=== PATIENT | male | born 1965 | race Caucasian/White ===

== ENCOUNTER 2018-12-04 11:29 | Inpatient (IN) ==
--- NOTE | 2018-12-04 11:43 | Emergency Department Note ---
Disposition Clinical Impression: Abnormal stress electrocardiogram test using treadmill Chest pain Qualifiers: Chest pain type: unspecified Qualified Code(s): R07.9 - Chest pain, unspecified Disposition: Admitted As Inpatient Condition: Fair Forms: ED Satisfaction Letter Time of Disposition: 13:07 General Adult HPI - General Chief complaint: ED Chest Pain Stated complaint: cp Time Seen by Provider: 12/04/18 11:35 Source: EMS Limitations: no limitations Nursing Notes Reviewed: Yes Vital Signs Reviewed: Yes - History of Present Illness HPI Narrative: Patient presents to the emergency department after a positive stress test at the [facility]. Patient states she has been having some dizzy spells intermittently. None today. He went to the OR to have a stress test performed. After february have to patient developed some anterolateral ST depressions and T- wave inversions. Following the test he had some substernal chest pressure that is since resolved. Patient states he feels completely fine at this time. No cardiac history. No history of hypertension diabetes or high cholesterol. He is a nonsmoker. He states his mother did have heart problems. Pain Scale: 0 - Related Data Allergies Allergy/AdvReac Type Severity Reaction Status Date / Time No Known Allergies Allergy Verified 12/04/18 11:41 All systems ED: reviewed and negative except as stated. Constitutional: Denies: fever Cardiovascular: Reports: chest pain. Denies: palpitations, dyspnea on exertion, syncope Respiratory: Denies: cough Gastrointestinal: Denies: nausea Neurological: Reports: vertigo. Denies: headache Past Medical History - Past Medical History Attestation: Yes The following information was validated with the patient. Source: patient Medical history: Reports: no medical history Psychiatric history: Reports: no psych history - Social History Smoking Status: Never smoker Smokeless Tobacco Status: No Alcohol use: Reports: none Drug use: Reports: none Physical Exam - General Limitations: no limitations General appearance: alert, in no apparent distress - Head Head exam: atraumatic, normocephalic - Eye Eye exam: Present: normal appearance, PERRL - ENT ENT exam: normal exam - Neck Neck exam: Present: normal inspection - Chest Chest inspection: Present: normal inspection - Respiratory Respiratory exam: Present: normal lung sounds bilaterally - Cardiovascular Cardiovascular exam: Present: regular rate, normal rhythm, normal heart sounds - Abdominal Exam Abdominal exam: Present: soft, Non-Tender - Neurological Exam Neurological exam: Present: alert, oriented X3 - Psychiatric Psychiatric exam: Present: normal affect - Skin Skin exam: Present: warm, dry Course - Reevaluation(s) Reevaluation #1: Consult called the cardiology. Dr Marrero states the medical admission and they will see him in consultation. No heparin at this time. We agree with the patient is asymptomatic and not in need of an emergent heart catheterization at this moment. Time: 11:48 Reevaluation #2: Workup is unremarkable and I am calling for admission at this time. Time: 12:54 - Consultations Consultation #1: Dr Cox accepts for admission. Time: 13:07 Vital Signs Temperature 97.6 F 12/04/18 11:34 Pulse Rate 59 12/04/18 11:34 Respiratory Rate 16 12/04/18 11:34 Blood Pressure 143/93 12/04/18 11:34 O2 Sat by Pulse Oximetry 98 12/04/18 11:34 Temperature 97.6 F 12/04/18 11:34 Pulse Rate 59 12/04/18 11:34 Respiratory Rate 16 12/04/18 11:34 Blood Pressure 143/93 12/04/18 11:34 O2 Sat by Pulse Oximetry 98 12/04/18 11:34 Oxygen Delivery Oxygen Delivery Room Air Medical Decision Making - Medical Records Medical records reviewed: Yes I reviewed the patient's medical records. - Lab Data Lab results reviewed: Yes I reviewed the patient's lab results. Result diagrams: 12/04/18 12:04 12/04/18 12:04 Lab Results 12/04/18 12/04/18 Range/Units 12:04 12:04 WBC 5.8 (4.3-11.1) K/mcL RBC 4.78 (4.19-5.50) M/mcL Hgb 15.1 (12.9-16.9) g/dL Hct 43.4 (37.5-50.1) % MCV 90.8 (83.0-100.0) fL MCH 31.6 (28.0-33.3) pg MCHC 34.8 (31.6-35.5) g/dL RDW 12.3 (11.5-14.5) % Plt Count 260 (140-400) K/mcL MPV 9.5 (9.4-12.4) fL Immature Gran % 0.3 (0-4) % Seg Neutrophils % 57.0 % Lymphocytes % 31.2 % Monocytes % 8.9 % Eosinophils % 2.1 % Basophils % 0.5 % Neutrophils # 3.3 (1.6-8.9) K/mcL Lymphocytes # 1.8 (0.6-4.6) K/mcL Monocytes # 0.5 (0.0-1.3) K/mcL Eosinophils # 0.1 (0.0-0.6) K/mcL Basophils # 0.0 (0.0-0.2) K/mcL Sodium 141 (136-145) mEq/L Potassium 4.4 (3.5-5.1) mEq/L Chloride 108 H (98-107) mEq/L Carbon Dioxide 26 (23-29) mEq/L BUN 14 (6-20) mg/dL Creatinine 0.94 (0.70-1.30) mg/dL Est GFR ( Amer) > 60 (> 60) Est GFR (Non-Af Amer) > 60 (> 60) BUN/Creatinine Ratio 15 (6-26) Glucose 88 (70-105) mg/dL Calculated Osmolality 292 (280-300) Calcium 9.1 (8.6-10.3) mg/dL Troponin I < 0.03 (< 0.04) ng/mL - Radiology Data Radiology results reviewed: Yes I reviewed the patient's radiology results. Chest X-Ray 12/04/18 11:36 IMPRESSION: No radiographic evidence of acute cardiopulmonary disease. D/ / eKegan Silverio / Keegan Silverio Interpreting Provider: Keegan Silveroi - EKG Data EKG #1 EKG attestation: Yes I reviewed and interpreted this EKG. EKG results narrative: Normal sinus at 56. Normal ST segments. Normal T waves. Normal QRS. QT 418 with QTC 408
[2018-12-04 12:20] LABS: Basophils % 0.5 %; Eosinophils # 0.1 K/mcL (0.0-0.6); Eosinophils % 2.1 %; Hematocrit 43.4 % (37.5-50.1); Hemoglobin 15.1 g/dL (12.9-16.9); Immature Granulocytes % 0.3 % (0-4); Lymphocytes # 1.8 K/mcL (0.6-4.6); Lymphocytes % 31.2 %; Mean Corpuscular HGB Conc 34.8 g/dL (31.6-35.5); Mean Corpuscular Hemoglobin 31.6 pg (28.0-33.3); Mean Corpuscular Volume 90.8 fL (83.0-100.0); Mean Platelet Volume 9.5 fL (9.4-12.4); Monocytes # 0.5 K/mcL (0.0-1.3); Monocytes % 8.9 %; Neutrophils # 3.3 K/mcL (1.6-8.9); Platelet Count 260 K/mcL (140-400); Red Blood Count 4.78 M/mcL (4.19-5.50); Red Cell Distribution Width 12.3 % (11.5-14.5)
[2018-12-04 12:40] LABS: BUN/Creatinine Ratio 15 (6-26); Blood Urea Nitrogen 14 mg/dL (6-20); Calcium 9.1 mg/dL (8.6-10.3); Carbon Dioxide 26 mEq/L (23-29); Chloride 108 mEq/L (98-107); Glucose 88 mg/dL (70-105); Osmolality,Calculated 292 (280-300); Potassium 4.4 mEq/L (3.5-5.1); Sodium 141 mEq/L (136-145); eGFR For Non-African Americans > 60 (> 60)
[2018-12-04 12:41] LABS: Troponin I < 0.03 ng/mL (< 0.04)
[2018-12-04] MEDS ORDERED: Naloxone 0.4 MG/ML INJ IVP PRN (13:48)
[2018-12-04] MEDS ORDERED: Ondansetron 4 MG/2 ML VIAL IVP PRN (13:52)
[2018-12-04] MEDS ORDERED: Nitroglycerin 0.4 MG TAB.SUBL SL PRN (13:52)
--- NOTE | 2018-12-04 14:02 | Internal Med History&Physical ---
Date of Encounter: 12/04/18 Time of Encounter: 13:30 Internal Medicine - H&P: HPI Chief complaint: Abnormal stress test Admitted From: Emergency Dept Plans for Post Hospital Care: Home History of present illness: Mr. Anderson is a 53 year old male with hx of Barretts esophagus transferred to ED from [place] due to abnormal stress test. Mr Anderson reported that he has been having episodes of lightheadedness recently. No other symptoms. No CP or SOB. No prior cardiac disease. He saw his PCP and stress test was arranged. Today he underwent nuclear stress test. At the end of test he developed some substernal chest discomfort with dyspnea. No nausea or diaphoresis. He sat down and "my blood pressure dropped." He was given IV fluids with improvement and the chest discomfort resolved. It has not returned. Currently he is asymptomatic. At [place] he was taken to the urgent care. Monitor showed sinus bradycardia. Creatinine 0.93 and troponin negative. He was evaluated in ED and admitted for further cardiac workup. Past Med Surg Social Fam HX - Past Medical History Source: patient, old records reviewed Medical history: GERD, hyperlipidemia Additional medical history: Barretts esophagus, urethral stricture, Psychiatric history: no psych history - Past Surgical History Additional surgical history: Left Knee Scope, Left Knee ACL, Left Total Knee Replacement, Urethral Stricture Removal, Aron Fundoplication - Social History Smoking Status: Former smoker Smokeless Tobacco Status: No Alcohol use: none Drug use: none Occupational status: employed Current living situation: With Family Activity Level: Independent ambulation - Family History Mother Hx Family Cardiac Disorders: Yes Hx Family Endocrine Disorder: Yes Father Hx Family Cancer: Yes Internal Medicine - H&P: Meds Sulfamethoxazole/Trimeth DS [Bactrim DS] 0.5 each PO DAILY 12/04/18 [History] Allergy/AdvReac Type Severity Reaction Status Date / Time No Known Allergies Allergy Verified 12/04/18 11:41 All Systems PM: A 10-system review of systems was performed and is negative for pertinent findings except as documented above in the HPI. - Constitutional Constitutional: no fatigue, no falls - EENT Eyes: no dry eye, no loss of vision Ears: no decreased hearing Nose, mouth and throat: no dry mouth, no sinus pain - Cardiovascular Cardiovascular ROS IM: chest pain, dyspnea, lightheadedness, no orthopnea, no palpitations, no paroxysmal nocturnal dyspnea - Respiratory Respiratory: no dyspnea, no dyspnea on exertion, no chest congestion - Gastrointestinal Gastrointestinal: no cramping, no nausea - Genitourinary Genitourinary ROS male: difficulty urinating, urinary hesitancy - Musculoskeletal Musculoskeletal ROS IM: no arthralgias, no muscle cramps - Integumentary Integumentary IM: no erythema, no rash - Neurological Neurological ROS: no confusion, no convulsions, no paresthesias - Endocrine Endocrine IM: no cold intolerance, no excessive sweating - Hematologic/Lymphatic Hematologic/Lymphatic: no easy bleeding - Allergic/Immunologic Allergic/Immunologic: no throat swelling - Constitutional Vitals: Temp Pulse Resp BP Pulse Ox 97.6 F 59 16 113/76 98 12/04/18 11:34 12/04/18 11:34 12/04/18 13:22 12/04/18 13:22 12/04/18 11:34 General appearance: Present: A&O X 3, pleasant, answers questions appropriately Exam: See below - Head Head exam: Present: atraumatic, normocephalic - Eye Eye exam: Present: EOMI, conjuntiva pink - ENT ENT exam: Present: mucous membranes moist - Neck Neck exam general surgery: Present: normal inspection. Absent: thyromegaly - Respiratory Respiratory exam: Present: CTAB. Absent: rales, rhonchi, wheezes - Cardiovascular Cardiovascular exam: Present: RRR. Absent: tachycardia - GI/Abdominal GI/Abdominal exam: Present: normal bowel sounds, soft. Absent: mass, tenderness - Extremities Exam Extremities exam: Present: warm. Absent: pedal edema, tenderness - Neurological Exam Neurological exam: Present: alert, oriented X3, no focal deficits - Psychiatric Psychiatric exam: Present: normal affect, normal mood - Skin Skin exam: Present: dry, warm. Absent: rash Internal Med - H&P Results - Labs CBC & Chem 7: 12/04/18 12:04 12/04/18 12:04 Labs: Short CBC 12/04/18 Range/Units 12:04 WBC 5.8 (4.3-11.1) K/mcL Hgb 15.1 (12.9-16.9) g/dL Hct 43.4 (37.5-50.1) % Plt Count 260 (140-400) K/mcL Neutrophils # 3.3 (1.6-8.9) K/mcL BMP 12/04/18 12:04 Sodium 141 Potassium 4.4 Chloride 108 H Carbon Dioxide 26 BUN 14 Creatinine 0.94 Glucose 88 Calcium 9.1 Cardiac Enzymes 12/04/18 Range/Units 12:04 Troponin I < 0.03 (< 0.04) ng/mL - EKG Data Prior EKG available for review: yes When compared to previous EKG: there is no significant change Interpretation IM: normal EKG - Impressions ITS Impressions Chest X-Ray 12/04/18 11:36 IMPRESSION: No radiographic evidence of acute cardiopulmonary disease. D/ / Keegan Silverio / Keegan Silverio Interpreting Provider: Keegan Silverio - Assessment and plan (1) Chest pain Current Visit: Yes Status: Acute Assessment and plan: Pt transferred from [place] due to abnormal stress test. Review of stress test shows significant EKG changes. Pt had chest discomfort and presumed hypotension (per his report of BP dropping and need for fluids) in stress test. Currently asymptomatic Admit to med tele. NPO at this time. Anticipate [facility] today. Has been given ASA. Continue dialy ASA. Statin started. Qualifiers: Chest pain type: chest pain due to myocardial ischemia Ischemic chest pain type: unstable angina pectoris Qualified Code(s): I20.0 - Unstable angina (2) Urethral stricture Current Visit: Yes Status: Chronic Assessment and plan: Pt with hx of urethral stricture. Takes half of Bactrim DS daily and straight caths one to two times weekly. Qualifiers: Urethral stricture type: other stricture Urethral stricture sex-location: male urethra-unspecified Qualified Code(s): N35.819 - Other urethral stricture, male, unspecified site (3) Barretts esophagus Current Visit: Yes Status: Chronic Assessment and plan: Previous Barretts. Hx Aron. Qualifiers: Jacob's esophagus type: with dysplasia of unspecified degree Qualified Code(s): K22.719 - Jacob's esophagus with dysplasia, unspecified; K22.71 - Jacob's esophagus with dysplasia (4) HLD (hyperlipidemia) Current Visit: Yes Status: Chronic Assessment and plan: Per list from [place]. Pt on no meds. Start statin today. Lipid panel in AM. Qualifiers: Hyperlipidemia type: mixed hyperlipidemia Qualified Code(s): E78.2 - Mixed hyperlipidemia - Time Spent With Patient Total time spent is greater than 50% in coordination of care (as documented) at patient's floor/unit and/or counseling patient:
--- NOTE | 2018-12-04 14:09 | Cardiology Consult Note ---
<Jey Forbes R - Last Filed: 12/04/18 14:33> Date of Encounter: 12/04/18 Time of Encounter: 14:07 Assessment and Plan (1) Abnormal stress test Current Visit: Yes Status: Acute Abnormal outpt nuclear exercise stress test today at [place] ordered by PCP. Significant diffuse ST depression with exercise and elevation in aVR. Hypotensive BP response with exercise. Nuclear imaging showed a mild anteroseptal defect. Admits to intermittent left neck pain over the past year, associated n/v, dizziness. Most recent severe episode was 2 weeks ago when shoveling snow, took 4-5 hours for symptoms to resolve. Reports left neck pain 1-2 times per week, mostly exertional. CAD risk factors include prior tobacco abuse and family hx. Troponin negative. TTE to evaluate structure and function. Recommend [facility]. R/B/A discussed. Pt agrees to proceed. [facility] today. Discussion w patient/family: The assessment and plan as outlined above was discussed with the patient and/or family members who expressed understanding and agreement. All questions were answered. Thank you for involving us in the care of your patient. Please call with any questions. I will discuss all the above with Dr. Marrero and make changes as necessary. History of Present Illness Consult date: 12/04/18 Requesting physician: Robert Jackson Consult reason: abnormal stress Chief complaint: neck pain History of present illness: Mr. Anderson is a 53 year old male with PMH of Jacob's esophagus transferred from [place] to [facility] for abnormal stress test today, ordered by PCP reportedly for dizziness. He developed significant diffuse ST depression with exercise and elevation in aVR. He also had a hypotensive BP response with exercise. Nuclear imaging showed a mild anteroseptal defect. At the end of test he developed some substernal chest discomfort with dyspnea. Upon further questioning, pt admits to intermittent left neck pain over the past year, associated nausea/vomiting and dizziness. He states the most recent severe episode was 2 weeks ago when shoveling snow and it took 4-5 hours for symptoms to subside. He is very active, job requires lots of walking. Reports left neck pain 1-2 times per week. Reports mother had IN in her 40s. Prior tobacco abuse, quit >25 years ago. Past Med Surg Social Fam HX - Past Medical History Medical history: GERD, hyperlipidemia Additional medical history: Barretts esophagus, urethral stricture, Psychiatric history: no psych history - Past Surgical History Additional surgical history: Left Knee Scope, Left Knee ACL, Left Total Knee Replacement, Urethral Stricture Removal, Aron Fundoplication - Social History Smoking Status: Former smoker Smokeless Tobacco Status: No Alcohol use: none Drug use: none - Family History Mother Hx Family Cardiac Disorders: Yes Hx Family Endocrine Disorder: Yes Father Hx Family Cancer: Yes Medications and Allergies Sulfamethoxazole/Trimeth DS [Bactrim DS] 0.5 each PO DAILY 12/04/18 [History] Allergy/AdvReac Type Severity Reaction Status Date / Time No Known Allergies Allergy Verified 12/04/18 11:41 All Systems Review: The remainder of the systems were reviewed and are negative - Cardiovascular Cardiovascular: as per HPI, chest pain with exertion, radiating jaw, neck or arm pain, lightheadedness - Gastrointestinal Gastrointestinal: nausea - Neurological Neurological: dizziness Physical Examination Vital Signs, Last 4 Hours Temp Pulse Resp BP Pulse Ox 12/04/18 13:22 16 113/76 12/04/18 11:34 97.6 F 59 16 143/93 98 Vital Signs Temp Pulse Resp BP Pulse Ox 12/04/18 14:09 97.4 F L 62 18 138/88 98 12/04/18 14:08 98 12/04/18 13:22 16 113/76 12/04/18 11:34 97.6 F 59 16 143/93 98 Intake and Output 12/03/18 12/04/18 12/04/18 23:59 07:59 15:59 Other: Weight 91.654 kg Patient Weight 12/04/18 23:59 Weight 91.654 kg General: Conversant, No Apparent Distress HEENT: Atraumatic, Normocephaly, Mucus Membranes Moist Neck: No JVD, Normal carotid pulses Cardiac: Reg Rate and Rhythm, Normal S1 and S2, No Murmur Lungs: Normal Breath Sounds, No Wheeze, Rales, Rhonchi Neuro: Alert and responsive, No focal deficits noted Abdomen: Soft, Non-Tender Skin: No rashes noted on visualized skin Musculoskeletal: No Chest Wall Tenderness Extremities: No Clubbing, No Cyanosis, No Edema, Normal Pulses Results 12/04/18 12:04 12/04/18 12:04 Lab Results 12/04/18 12/04/18 12:04 12:04 WBC 5.8 Hgb 15.1 Hct 43.4 Plt Count 260 Sodium 141 Potassium 4.4 Chloride 108 H Carbon Dioxide 26 BUN 14 Creatinine 0.94 Glucose 88 Calcium 9.1 Troponin I < 0.03 Short CBC 12/04/18 Range/Units 12:04 WBC 5.8 (4.3-11.1) K/mcL Hgb 15.1 (12.9-16.9) g/dL Hct 43.4 (37.5-50.1) % Plt Count 260 (140-400) K/mcL Neutrophils # 3.3 (1.6-8.9) K/mcL BMP 12/04/18 Range/Units 12:04 Sodium 141 (136-145) mEq/L Potassium 4.4 (3.5-5.1) mEq/L Chloride 108 H (98-107) mEq/L Carbon Dioxide 26 (23-29) mEq/L BUN 14 (6-20) mg/dL Creatinine 0.94 (0.70-1.30) mg/dL Glucose 88 (70-105) mg/dL Calcium 9.1 (8.6-10.3) mg/dL Cardiac Enzymes 12/04/18 Range/Units 12:04 Troponin I < 0.03 (< 0.04) ng/mL Impressions Chest X-Ray 12/04/18 11:36 IMPRESSION: No radiographic evidence of acute cardiopulmonary disease. D/ / Keegan Silverio / Keegan Silverio Interpreting Provider: Keegan Silverio Active Medications Aspirin (Aspirin) 81 mg PO DAILY WILMER Stop: 06/06/19 09:01 Atorvastatin Calcium (Lipitor) 80 mg PO HS WILMER Stop: 06/05/19 21:01 Heparin Sodium (Porcine) (Heparin) 5,000 unit SQ Q8HCO WILMER Stop: 06/05/19 16:01 Naloxone HCl (Narcan) 0.4 mg IVP Q2MIN PRN PRN Reason: SEE COMMENTS Stop: 06/05/19 13:49 Nitroglycerin (Nitroglycerin) 0.4 mg SL Q5MIN PRN PRN Reason: Chest Pain Stop: 06/05/19 13:53 Ondansetron HCl (Zofran) 4 mg IVP Q6HR PRN; Protocol PRN Reason: Nausea Stop: 06/05/19 13:53 - Imaging and Cardiology Stress Test: report reviewed - EKG Interpretation EKG results cardiology: personally reviewed (SR) Consult Discharge Plan - Plan [facility]errals: [facility] [Primary Care Provider[facility] - <ElidaKeeley - Last Filed: 12/04/18 16:12> Date of Encounter: 12/04/18 - Attending Attestation I examined this patient and my medical decision-making was reviewed with the WRAPPING MACHINE OPERATOR. I agree with the documented findings, disposition and treatment plan as described. Mr. Anderson was transferred from the [place] for abnormal stress test. The stress test (ECG, Nuclear images) were personally reviewed - marked ST depressions with aVR elevation at peak stress resolving several minutes after exercise - nuclear images demonstrate a possible very small, mild intensity mid anterior/anteroseptal perfusion defect during stress. Per report, patient dropped his blood pressure during exercise. Discussed findings with patient and . Stress ECG portion consistent with ischemia. Nuclear images may demonstrate balanced ischemia. Recommend proceeding with [facility]; R/B/A discussed. Patient is in agreement to proceed. Assessment and Plan Discussion w patient/family: The assessment and plan as outlined above was discussed with the patient and/or family members who expressed understanding and agreement. All questions were answered. Thank you for involving us in the care of your patient. Please call with any questions. History of Present Illness History of present illness: Mr. Anderson is a 53 year old male All Systems Review: The remainder of the systems were reviewed and are negative Physical Examination Vital Signs, Last 4 Hours Temp Pulse Resp BP Pulse Ox 12/04/18 14:09 97.4 F L 62 18 138/88 98 12/04/18 14:08 98 12/04/18 13:22 16 113/76 Results 12/04/18 12:04 12/04/18 12:04 Lab Results 12/04/18 12/04/18 12:04 12:04 WBC 5.8 Hgb 15.1 Hct 43.4 Plt Count 260 Sodium 141 Potassium 4.4 Chloride 108 H Carbon Dioxide 26 BUN 14 Creatinine 0.94 Glucose 88 Calcium 9.1 Troponin I < 0.03
[2018-12-04] MEDS ORDERED: Verapamil 5 MG/2 ML VIAL ONE (14:29)
[2018-12-04] MEDS ORDERED: Nitroglycerin 1,000 MCG/10 ML VIAL IV ONE (14:30)
[2018-12-04] MEDS ORDERED: *HR* Heparin 10,000 UNIT/10 ML VIAL ONE (14:30)
[2018-12-04] MEDS ORDERED: Heparin 1,000 UNITS/500 mL 500 ML ONE (14:30)
[2018-12-04] MEDS ORDERED: 0.9 % Sodium Chloride 2,000 ML ONE (14:30)
[2018-12-04] MEDS ORDERED: ISOVUE-370 200 ML INFUS..BTL ONE (14:30)
--- NOTE | 2018-12-04 15:02 | Pre-Sedation Evaluation ---
Pre-sedation evaluation - Pre-sedation checklist Date of procedure: 12/04/18 Procedure: [facility] Recent Vitals: Last Vital Signs Temp 97.4 F L 12/04/18 14:09 Pulse 62 12/04/18 14:09 Resp 18 12/04/18 14:09 BP 138/88 12/04/18 14:09 Pulse Ox 98 12/04/18 14:09 Previous reaction to sedatives/anesthetics: No Dietary Status: NPO after Midnight Dentition: full dentition ASA Classification *see protocol: CLASS II-Mild systemic disease Plan of Care: Pt appropriate candidate for procedure/moderate/conscious sedation, Risks/benefits of procedure/sedation discussed w/ patient/family Cardiac Registry (Cardio Only) - Functional Capacity Functional Capacity: >=4 METS with symptoms - Clincal Frailty Scale Clinical Frailty Scale: Managing Well
[2018-12-04] MEDS ORDERED: *HR* FentaNYL (PF) 100 MCG/2 ML VIAL ONE (15:07)
[2018-12-04] MEDS ORDERED: *HR* Midazolam HCl 2 MG/2 ML VIAL ONE ×2 (15:07→15:13)
--- NOTE | 2018-12-04 15:37 | Event Note ---
Date of Encounter: 12/04/18 Time of Encounter: 15:30 - Cardiology Event Note Nml EF. Severe mid LAD systolic bridging, otherwise nonobstructive CAD. Recommend med treatment with toprol xl 25mg daily and fu outpatient. Stable for dc ~1800 if no new issues arise.
--- NOTE | 2018-12-04 15:48 | Invasive Diagnostic Lab Proc ---
Name: Benedict Anderson Date of Study: 12/04/2018 Date: 1965 Ht: 72.0in Medical Record#: [id number] Age: 53 Wt: 200.62lb Gender: Male BSA: 2.13 Order #: [id number] BMI: 27.17 Physicians Procedure Physician: Lex Benjamin MD, [facility] Referring MD: Referring MD: Staff Name Position Time In Sites, Virgie RT (R) Scrub 03:03 PM Jazmine Otero RT (R) Monitor 03:04 PM Whitney Donovan RN Electrical Maintenance Technician 03:04 PM Damion Calero RN Nurse 03:04 PM Indications Indication Abnormal Test - Stress Procedures Performed Procedure L HRT ARTERY/VENTRICLE ANGIO Pre-Procedure Checklist Informed consent is complete signed and on chart. H&P is on chart. ID band is on and ID verified with patient. Patient NPO for procedure The procedure was described for the patient and questions were answered. Blood Pressure: 138/88 ECG is on chart. Rhythm: NSR Plan of Care Patient will tolerate the procedure without complications. Adequate level of comfort will be maintained. Hemodynamics will remain stable Patient will recover from procedure without complications. Respiratory function will be maintained. Cardiac rhythm will remain stable. Patient temperature will be maintained. Patient and/or family have verbalized understanding of the procedure. Patient Education Chief Complaint/Reason for Test: Cardiac Cath Developmental Category: Adult (18-64 years) Developmentally Appropriate for Age: Yes Learning Barriers: None Education Needs: Procedure Education Method: Verbal Information Taught: Cardiac Cath Educational Evaluation: Able to repeat information Intravenous Access Time IV Size Location DC'd Fluid/Drip Rate Units RN 02:39 PM 22g 1" Patent On Arrival Rt Hand 0.9NaCl 25 ml/hr Whitney Donovan RN Allergies No Known Allergies Vital Signs Time BP (mmHg) HR (bpm) O2 Sat. RR (bpm) LOC 03:05 PM / % 5 = Fully awake and oriented or at pre-proc level 03:05 PM / % 5 = Fully awake and oriented or at pre-proc level 03:10 PM / % 4 = Oriented but drowsy 03:09 PM 135 / 88 72 100 % 11 03:14 PM 129 / 76 76 100 % 22 03:19 PM 118 / 73 91 98 % 03:24 PM 103 / 58 86 98 % Procedural Medications Time Medication Dose Units Method Given By 03:05 PM Oxygen 2 L/min nasal cannula Whitney Donovan RN 03:11 PM Versed 2 mg Intravenous Whitney Donovan RN 03:11 PM Fentanyl 50 mcg Intravenous Whitney Donovan RN 03:13 PM Versed 1 mg Intravenous Whitney Donovan RN 03:13 PM Fentanyl 25 mcg Intravenous Whitney Donovan RN 03:17 PM Lidocaine 2% 1 ml Subcutaneous Lex Benjamin MD, [facility] 03:18 PM Heparin 4000 units Nitroglycerin 200 mcg Verapamil 2.5 mg Intraarterial Lex Benjamin MD, [facility] ASA Classification: CLASS II- Mild systemic disease (i.e. well-controlled diabetes, hypertension, asthma, cigarette smoking) Megan Score Preprocedure Postprocedure Activity 2- Moves 4 extremities sustained head lift Activity 2- Moves 4 extremities sustained head lift Circulation 2- SBP +/= 20 points of pre-anesthetic level Circulation 2- SBP +/= 20 points of pre-anesthetic level Consciousness 2- Awake and alert oriented x 3 Consciousness 2- Awake and alert oriented x 3 O2 Saturation 2- Able to maintain O2 satruation of 92% on room air O2 Saturation 2- Able to maintain O2 satruation of 92% on room air Respiratory 2- Able to deep breathe and cough well Respiratory 2- Able to deep breathe and cough well Total Score 10 Total Score 10 Contrast Agent: Isovue Diagnostic Contrast: 34 ml Total Contrast: 34 ml Fluoro Dose: 1595 mGy Procedure Log Time Note Enter By 02:41 PM CathStat 02:56 PM Pt arrived to cardiac cath lab technologist 2 at 14:56 tsites 03:04 PM Virgie Richey RT (R) Position: Scrub Time in: 15:03 tsites 03:04 PM Jazmine Otero RT (R) Position: Monitor Time in: 15:04 tsites 03:04 PM Whitney Donovan RN Position: Electrical Maintenance Technician Time in: 15:04 tsites 03:04 PM Case Start 03:04 PM Damion Calero RN Position: Nurse Time in: 15:04 tsites 03:04 PM Patient charges- Angio tray pack, Navilyst 3mm J, Pulse Oximetry and ACIST tubing and transducer tsites 03:04 PM Case Delayed No tsites 03:04 PM Physician arrived 15:04 tsites 03:04 PM ASA Class CLASS II- Mild systemic disease (i.e. well-controlled diabetes, hypertension, asthma, cigarette smoking) tsites 03:04 PM Meet and greet completed tsites 03:04 PM Sign in performed according to hospital policy. Informed consent was obtained. tsites 03:04 PM Procedure start 15:04 tsites 03:05 PM Time: 15:05 Oxygen on at 2 L/min per nasal cannula by Whitney Donovan RN tsites 03:05 PM Time: 15:05 Patient comfortable and pain free: Yes tsites 03:05 PM Time: 15:05LOC: 5 = Fully awake and oriented or at pre-proc level tsites 03:05 PM Clinical Presentation: Unstable angina tsites 03:08 PM Hair removed from procedure site in procedure lab using clippers. Right wrist, right groin prepped with Chloraprep by Damion Calero RN, then patient was draped. Skin intact. [facility] 03:09 PM Vitals capture started with the following parameters, Patient=Adult, Interval=5 min, Initial Nzyephcn=720 mmHg, Deflation Rate=5 mmHg, Cuff placed on Right Arm 03:09 PM HR=72 bpm, AUAW=715/88 mmhg, VsY1=856.0 %, Resp=11 B/min, Comment=NSR 03:10 PM Time: 15:05 Patient comfortable and pain free: Yes [facility] 03:10 PM Time: 15:05LOC: 5 = Fully awake and oriented or at pre-proc level [facility] 03:11 PM Time: 15:11 Versed 2 mg Intravenous [facility] 03:11 PM Time: 15:11 Fentanyl 50 mcg Intravenous Given by [facility] 03:13 PM Time: 15:13 Versed 1 mg Intravenous Given by Whitney Donovan RN 03:14 PM Time: 15:13 Fentanyl 25 mcg Intravenous Given by [facility] 03:14 PM HR=76 bpm, XMNS=374/76 mmhg, OfE6=973.0 %, Resp=22 B/min, EtCO2=33 mmHg, Comment=NSR 03:14 PM Time out was performed according to hospital policy. Conscious sedation and anesthesia was achieved (see medication log with in this report above) dspellman 03:15 PM Pressure channel 1 zeroed. 03:17 PM Pressure channel 1 zeroed. 03:17 PM Time: 15:17 1 ml Lidocaine 2% to right radial Subcutaneous Given by Lex Benjamin MD, [facility] dspellman 03:17 PM Access obtained by percutaneous puncture. 6Fr 10cm Terumo Glidesheath sheath placed in right Radial artery. [id number] dspellman 03:18 PM Time: 15:18 Patient given 4,000 units Heparin, 200 mcg Nitroglycerin, and 2.5 mg Verapamil Intraarterial by Lex Benjamin MD, [facility]. This is given to reduce risk of vessel spasm and thrombosis. dspellman 03:18 PM 5Fr TIG catheter inserted over the wire [facility] dspellman 03:18 PM 0.035 260cm Navilyst 3mmJ wire [id number] dspellman 03:19 PM LCA angiography performed in multiple views. dspellman 03:19 PM HR=91 bpm, UFVC=756/73 mmhg, SpO2=98.0 %, EtCO2=32 mmHg, Comment=NSR 03:20 PM Recorded Pressure: Ao, HR=72, Condition=Condition 1 (Aorta) Ao 72/49/60 03:21 PM RCA angiography performed in multiple views. dspellman 03:21 PM Coronary Dominance: Left dspellman 03:21 PM Catheter removed dspellman 03:21 PM 5Fr Pigtail catheter inserted over the wire [facility] dspellman 03:22 PM Catheter crossed the aortic valve and was selectively placed in the left ventricle. Pressures recorded on pullback for left heart catheterization. dspellman 03:23 PM Recorded Pressure: LV, HR=81, Condition=Condition 1 (Left Ventricle) LV 87/6/12 03:23 PM Pressure channel 1 zeroed. 03:24 PM Recorded Pressure: LV, Ao, HR=79, Condition=Condition 1 (Left Ventricle) LV 116/13/18, (Aorta) Ao 110/71/86 03:24 PM HR=86 bpm, NNOS=203/58 mmhg, SpO2=98.0 %, EtCO2=32 mmHg, Comment=NSR 03:24 PM Bolus angiogram of left Ventricle complete: 10 ml/sec for a total of 30 mls dspellman 03:24 PM Catheter removed dspellman 03:25 PM Lesion found in Mid LAD. Pre Stenosis: 30 Pre RAMANDEEP Flow: 3: Complete and Brisk Flow/Perfusion dspellman 03:25 PM Lesion found in Mid Circumflex. Pre Stenosis: 20 Pre RAMANDEEP Flow: 3: Complete and Brisk Flow/Perfusion dspellman 03:25 PM Mid/Distal Left Anterior Descending Coronary Artery and diagonal branches with 30% stenosis. If graft is supplying this area, 0 % stenosis dspellman 03:25 PM Circumflex, Obtuse Marginal, Left Posterior Descending, and Left Posterolateral Coronary Arteries with 20 % stenosis. If graft is supplying this area, 0 % stenosis dspell 03:26 PM Time: 15:10LOC: 4 = Oriented but drowsy dspellman 03:26 PM Procedure completed at 15:26 12/04/2018 dspellman 03:27 PM Sign out completed: Radiation Dose 160.84 mGy, 1595.47 cGy/cm2 Fluoro Time: 0.8 Isovue 370 - 200ml contrast 34 ml given by Lex Benjamin MD, [facility]. Complications: None. 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 Cardiac Rehab Consult needed: NoConfirmed administered medications: Yes dspellman 03:28 PM Isovue 370 - 200ml,1 Bottle(s) used. dspellman 03:28 PM Arterial sheath pulled, Vasc Band closure device used and was Successful S/N. dspellman 03:28 PM 8 ml air in Vasc Band. dspell 03:28 PM Estimated Blood Loss: minimal dspellman 03:28 PM Post ECG NSR dspellman 03:28 PM Post Blood Pressure 103/58 dspellman 03:28 PM Information taught Cardiac Cath and Vasc Band dspellman 03:29 PM Education needs Procedure, Plan of Care, and Responsibilities of Patient in Care dspellman 03:29 PM Learning barriers :None dspellman 03:29 PM Education Methods Verbal dspellman 03:29 PM Education evaluation Able to repeat information dspellman 03:29 PM Site status No bleeding/hematoma - Rt Wrist as reported by Sites, Virgie RT (R) at 15:29 dspellman 03:30 PM Vitals capture stopped. 03:30 PM Delay to floor No dspellman 03:34 PM Report given to Benitez RAMOS Pt taken to 3B Room #12. 15:33 dspellman 03:34 PM Patient out of room: 15:34 dspellman Complications Complication None Hemodynamics Pressures Site Systolic/A Wave Diastolic/V Wave Mean AO 72 49 60 LV 87 6 12 LV 116 13 18 AO 110 71 86 Post Procedure Information Blood Pressure: 103/58 mmHg Rhythm: NSR Post procedural instructions were given Closure Device Time Device Success/Fail 12/04/2018 3:33:00 PM Mechanical Compression Successful Site Checks Time Location Status Staff Sheath In? Note 03:29 PM Rt Wrist No bleeding/hematoma Sites, Virgie RT (R) Pulses Time Site Pre-Procedure Post-Procedure Note Bilateral DP & PT 2+ Bilateral radial 2+ Updated by Virgie Richey, RT (R) on 12/04/2018 3:38:45 PM RT Salomon electronically signed on 12/04/2018 3:40:24 PM with status of Final
[2018-12-04] MEDS ORDERED: *HR* Heparin 5,000 UNIT/ML VIAL SQ SCH (16:00)
--- NOTE | 2018-12-04 17:03 | Discharge Summary ---
- NOTES TO OUTPATIENT PROVIDER Notes to Outpatient Provider: Pt transferred to [place] following postiive stress test. 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 Develops ischemia with tachycardia. Toprol XL 25mg started and he is to follow up outpatient. Orders not resulted at time of discharge: Pending orders 12/04/18 14:30 CL Cardiac Catheterization [CL] Routine 12/04/18 14:32 EV echocardiogram Routine 12/05/18 04:00 Basic Metabolic Panel AM 0400 Complete Blood Count w/o Diff [HEME] AM 0400 Lipid Panel AM 0400 Magnesium AM 0400 Date of Encounter: 12/04/18 Time of Encounter: 17:00 - Discharge Diagnosis (1) Chest pain Priority: Primary Status: Resolved Qualifiers: Chest pain type: chest pain due to myocardial ischemia Ischemic chest pain type: unstable angina pectoris Qualified Code(s): I20.0 - Unstable angina (2) Urethral stricture Priority: Secondary Status: Chronic Qualifiers: Urethral stricture type: other stricture Urethral stricture sex-location: male urethra-unspecified Qualified Code(s): N35.819 - Other urethral stricture, male, unspecified site (3) Barretts esophagus Priority: Secondary Status: Chronic Qualifiers: Jacob's esophagus type: with dysplasia of unspecified degree Qualified Code(s): K22.719 - Jacob's esophagus with dysplasia, unspecified; K22.71 - Jacob's esophagus with dysplasia (4) HLD (hyperlipidemia) Priority: Secondary Status: Chronic Qualifiers: Hyperlipidemia type: mixed hyperlipidemia Qualified Code(s): E78.2 - Mixed hyperlipidemia Hospital course: Mr. Anderson is a 53 year old male transferred from [place] after positive stress test. Mr Anderson was transferred to ED from [place] after having positive finding on stress test. He was asymptomatic on arrival. He was evaluated and admitted. Mr Anderson was admitted to [facility]. He was seen by cardiology and underwent LHC. He was found to have severe systolic briding in mid LAD. He was started on Toprol XL 25mg daily and is to follow up with cardiology. He is currently afebrile and ready for discharge home. Discharge discussed with: patient - Time Spent with Patient Total time spent providing and/or coordinating discharge services: - Discharge Medications Prescriptions: Metoprolol XL (24 HR) Succ [Toprol Xl] 25 mg PO DAILY #30 tab.er.24h Home Medications: Aspirin 81 mg PO DAILY tab.chew 12/04/18 [Rx] Metoprolol XL (24 HR) Succ [Toprol Xl] 25 mg PO DAILY #30 tab.er.24h 12/04/18 [Rx] Sulfamethoxazole/Trimeth DS [Bactrim Ds] 0.5 each PO DAILY 12/04/18 [History] Allergies/Adverse Reactions: Allergy/AdvReac Type Severity Reaction Status Date / Time No Known Allergies Allergy Verified 12/04/18 11:41 Date of admission: 12/04/18 13:12 Primary care physician: PCP YASMINE Consults: 12/04/18 11:40 Consult to Cardiology [CONS] Stat Comment: Consulting Provider: Cardiology Cheryl Reason for Consult: positive stress test Time Notified: 11:40 Call Completed: Yes Discharging clinician: Robert Jackson Anticipated date of discharge: 12/04/18 - Constitutional Vitals: Temp Pulse Resp BP Pulse Ox 97.7 F 61 17 105/67 96 12/04/18 16:00 12/04/18 16:48 12/04/18 16:48 12/04/18 16:48 12/04/18 16:48 General appearance: Present: A&O X 3, pleasant, answers questions appropriately Exam: See below - Head Head exam: Present: normocephalic - Eye Eye exam: Present: EOMI, conjuntiva pink - ENT ENT exam: Present: mucous membranes moist - Respiratory Respiratory exam: Present: CTAB - Cardiovascular Cardiovascular exam: Present: RRR. Absent: tachycardia - GI/Abdominal GI/Abdominal exam: Present: soft. Absent: tenderness - Extremities Exam Extremities exam: Present: warm. Absent: tenderness - Neurological Exam Neurological exam: Present: alert, oriented X3, no focal deficits - Skin Skin exam: Present: dry, warm - Patient Status Disposition: Home, Self-Care Condition: Good Functional capacity at discharge: independent ambulation Overall status at discharge: patient is progressing back to baseline - Discharge Instructions [facility] With: [facility]Primary Care Provider[facility] - Additional Instructions: Follow up with cardiology as arranged. - Diet and Activity Activity: increase activity as tolerated (Per cardiology) Diet: low fat, low cholesterol
[2018-12-04 17:57] VITALS: BP 149/70
[2018-12-04] MEDS ORDERED: Perflutren Lipid Microsphere 1.3 ML in 0.9 % Sodium Chloride 8.7 ML IVP ONE (20:59)
[2018-12-05] MEDS ORDERED: Metoprolol XL (24 HR) Succ 25 MG TAB.ER.24H PO SCH (09:00)
[2018-12-05] MEDS ORDERED: Aspirin 81 MG TAB.CHEW PO SCH (09:00)
--- NOTE | 2018-12-05 21:05 | Electrocardiograph Report ---
[place] [address] Test Date: 2018-12-04 Pat Name: Benedict Anderson Department: [id number] Room: 3B12 Gender: M [employer]: : 1965 Requested By: Maria Esther See Order Number: [id number] Reading MD: Keeley Marrero Measurements Intervals [place] Rate: 56 P: 58 LA: 139 QRS: 62 QRSD: 108 T: 40 QT: 418 QTc: 404 Interpretive Statements Sinus rhythm Electronically Signed On 12-05-2018 21:03:58 EST by Keeley Marrero
== END 2018-12-04 18:58 | disposition home or self-care (01) | DRG 287 ==
LOC: 3BNU 11:29 → EMEROOARM 11:29 → SUATTDRO 13:12 → 3BNU 13:36
PROVIDERS: ADMIT Internal Medicine; ATTEND Internal Medicine